=== PATIENT | male | born 1950 | race Caucasian/White ===

== ENCOUNTER 2017-05-22 23:16 | Observation (INO) | payer BC, OTHER ==
--- NOTE | 2017-05-22 23:54 | CPEKG ---
Heart Rate: 56 RR Interval: 1071 P-R Interval: 172 QRSD Interval: 102 QT Interval: 460 QTC Interval: 444 P [place]: 47 QRS [place]: 43 T Wave [place]: 27 EKG Severity - NORMAL ECG - EKG Impression: SINUS RHYTHM Electronically Signed By: Dylan Knapp 23-May-2017 06:37:48
[2017-05-22] MEDS ORDERED: NS 500 ML IV ONE (23:57)
--- NOTE | 2017-05-22 23:57 | EDPHY ---
H & P Stated Complaint: c/o chest tightness/sob x 5 days, subsided x 3 days, today sx returned HPI/ROS: HPI CHIEF COMPLAINT: Chest pain/sob HISTORY OF PRESENT ILLNESS: Patient very pleasant 66-year-old male, significant past medical history for atrial fib status post ablation, he presents emergency room with 5 days of chest discomfort left-sided describes a dull ache it does not radiate. Additionally has associated shortness of breath. Feels like he can't take a deep breath in. No pleuritic pain. Denies fever vomiting. Denies nausea or diaphoresis. Denies focal weakness numbness or tingling. Decided come the emergency room as the discomfort got a little bit worse tonight. It is left-sided of his chest. It does not radiate. He has a scheduled appointment at [facility] next week. He has not had a stress test a long time. His AFib status post cardiac ablation was in 2004. No history of PE. He does complain of 2/10 left-sided chest discomfort at this time. Past Medical History: AFib status post cardiac ablation Past Surgical History: Cardiac ablation Social History: Denies daily use of drugs alcohol tobacco products. Family History: Father had a stroke at age 60, grandfather of [place] ROS REVIEW OF SYSTEMS: A comprehensive 10 point review of systems is otherwise negative aside from elements mentioned in the history of present illness. Exam Constitutional appears well nontoxic triage nursing summary reviewed, vital signs reviewed, awake/alert. Eyes normal conjunctivae and sclera, EOMI, PERRLA. HENT normal inspection, atraumatic, moist mucus membranes, no epistaxis, neck supple/ no meningismus, no raccoon eyes. Respiratory clear to auscultation bilaterally, normal breath sounds, no respiratory distress, no wheezing. Cardiovascular rate normal, regular rhythm, no murmur, no edema, distal pulses normal. Gastrointestinal soft, non-tender, no rebound, no guarding, normal bowel sounds, no distension, no pulsatile mass. Genitourinary no CVA tenderness. Musculoskeletal no midline vertebral tenderness, full range of motion, no calf swelling, no tenderness of extremities, no meningismus, good pulses, neurovascularly intact. Skin pink, warm, & dry, no rash, skin atraumatic. Neurologic awake, alert and oriented x 3, AAOx3, moves all 4 extremities equally, motor intact, sensory intact, CN II-XII intact, normal cerebellar, normal vision, normal speech. Psychiatric normal mood/affect. Heme/Lymph/Immune no lymphadenopathy. Differential diagnosis includes but is not limited to: ACS, atypical chest pain , pneumothorax, pneumonia, pulmonary embolism, aortic dissection, congestive heart failure, tumor, musculoskeletal pain, esophageal pain, GERD, peptic ulcer disease, pancreatitis Medical Decision Making: Plan for this patient IV establishment, obtain EKG, cardiac marker, chest x-ray, rule out acute coronary syndrome, check D-dimer, check basic blood work. Full-dose aspirin will be given as well as a nitroglycerin dose. Re-evaluation: EKG interpretation by me on record in [employer] system. Impression time of EKG 2253, this is sinus rhythm rate of 56 I do not appreciate acute ST elevation or significant ST depression. This patient has a positive D-dimer. In the setting of chest discomfort and shortness of breath will proceed with CT angiogram to rule out pulmonary embolism. 0148: D-dimer was positive. The CT angiogram called to me by Dr. Hooper is negative for acute pulmonary embolism. 0148: I did re-evaluate the patient this time he is chest pain-free after nitroglycerin. He has receive full-dose aspirin. EKG is nonischemic. Troponin negative. Positive D-dimer. His cardiac risk factors include his age, family history, and somewhat atypical chest pain story. Plan will be for admission for cardiac evaluation and rule out. No evidence of acute coronary syndrome here in the emergency room. 0155AM: Updated patient. Agrees for admission. Reason for admission chest pain further evaluation of this. Stress test. Spoke with the hospitalist Dr. Waldrop Agrees to admit. Source: Patient - Medical/Surgical History Hx Asthma: No Hx Chronic Respiratory Disease: No Hx Diabetes: No Hx Cardiac Disease: Yes Hx Renal Disease: No Hx Cirrhosis: No Hx Alcoholism: No Hx HIV/AIDS: No Hx Splenectomy or Spleen Trauma: No Other PMH: medical Atrial flutter. surgery cath, ablation - Social History Smoking Status: Never smoked Constitutional: Initial Vital Signs Temperature (C) 36.9 C 05/22/17 23:28 Heart Rate 59 L 05/22/17 23:28 Respiratory Rate 18 05/22/17 23:28 Blood Pressure 158/77 H 05/22/17 23:28 O2 Sat (%) 97 05/22/17 23:28 O2 Delivery Mode Room Air Allergies/Adverse Reactions: No Known Allergies Allergy (Verified 05/22/17 23:32) Home Medications: Medication Instructions Recorded Aspirin [Aspirin 81mg (OTC)] 81 mg PO DAILY 03/05/12 Metoprolol Succinate Xr [Toprol Xl 25 mg PO DAILY 03/05/12 25 mg (RX)] Medical Decision Making - Data Points Laboratory Results: Laboratory Results 05/22/17 23:45 05/22/17 23:45 05/22/17 05/22/17 05/22/17 23:45 23:45 23:45 WBC 8.34 10^3/uL 10^3/uL (3.80-9.50) RBC 4.77 10^6/uL 10^6/uL (4.40-6.38) Hgb 16.1 g/dL g/dL (13.7-17.5) Hct 44.5 % % (40.0-51.0) MCV 93.3 fL fL (81.5-99.8) MCH 33.8 pg pg (27.9-34.1) MCHC 36.2 g/dL g/dL (32.4-36.7) RDW 12.1 % % (11.5-15.2) Plt Count 175 10^3/uL 10^3/uL (150-400) MPV 11.5 fL fL (8.7-11.7) Neut % (Auto) 62.8 % % (39.3-74.2) Lymph % (Auto) 23.3 % % (15.0-45.0) [place] % (Auto) 9.5 % % (4.5-13.0) Eos % (Auto) 3.6 % % (0.6-7.6) Baso % (Auto) 0.4 % % (0.3-1.7) Nucleat RBC Rel Count 0.0 % % (0.0-0.2) Absolute Neuts (auto) 5.25 10^3/uL 10^3/uL (1.70-6.50) Absolute Lymphs (auto) 1.94 10^3/uL 10^3/uL (1.00-3.00) Absolute Monos (auto) 0.79 10^3/uL 10^3/uL (0.30-0.80) Absolute Eos (auto) 0.30 10^3/uL 10^3/uL (0.03-0.40) Absolute Basos (auto) 0.03 10^3/uL 10^3/uL (0.02-0.10) Absolute Nucleated RBC 0.00 10^3/uL 10^3/uL (0-0.01) Immature Gran % 0.4 % % (0.0-1.1) Immature Gran # 0.03 10^3/uL 10^3/uL (0.00-0.10) PT 12.5 SEC SEC (12.0-15.0) INR 0.91 (0.83-1.16) APTT 27.2 SEC SEC (23.0-38.0) D-Dimer 0.52 ug/mLFEU H ug/mLFEU (0.00-0.50) Sodium 143 mEq/L mEq/L (134-144) Potassium 3.7 mEq/L mEq/L (3.5-5.2) Chloride 104 mEq/L mEq/L (97-110) Carbon Dioxide 26 mEq/l mEq/l (22-31) Anion Gap 13 mEq/L mEq/L (8-16) BUN 19 mg/dL mg/dL (7-23) Creatinine 1.2 mg/dL mg/dL (0.7-1.3) Estimated GFR > 60 Glucose 84 mg/dL mg/dL (70-100) Calcium 10.0 mg/dL mg/dL (8.5-10.4) Magnesium 2.0 mg/dL mg/dL (1.6-2.3) Total Bilirubin 1.3 mg/dL mg/dL (0.1-1.4) Conjugated Bilirubin 0.3 mg/dL mg/dL (0.0-0.5) Unconjugated Bilirubin 1.0 mg/dL mg/dL (0.0-1.1) AST 35 IU/L IU/L (17-59) ALT 46 IU/L IU/L (21-72) Alkaline Phosphatase 119 IU/L IU/L (38-126) Creatine Kinase 127 IU/L IU/L (0-224) CK-MB (CK-2) Fraction 1.42 ng/mL ng/mL (0.00-3.19) Troponin I < 0.012 ng/mL ng/mL (0.000-0.034) NT-Pro-B Natriuret Pep 39 pg/mL pg/mL (0-125) Total Protein 7.7 g/dL g/dL (6.3-8.2) Albumin 4.4 g/dL g/dL (3.5-5.0) Lipase 199 IU/L IU/L (23-300) Medications Given: Discontinued Medications Aspirin Buffered (Aspirin Ec) 325 mg PO EDNOW ONE Stop: 05/23/17 00:33 Last Admin: 05/23/17 00:44 Dose: 325 mg Sodium Chloride (Ns) 500 mls @ 0 mls/hr IV EDNOW ONE; Wide Open PRN Reason: Protocol Stop: 05/22/17 23:58 Last Admin: 05/23/17 00:45 Dose: 500 mls Sodium Chloride (Ns) 1,000 mls @ 0 mls/hr IV ONCE ONE PRN Reason: Wide Open Stop: 05/23/17 01:02 Last Admin: 05/23/17 01:52 Dose: 1,000 mls Nitroglycerin (Nitrostat) 0.4 mg SL EDNOW ONE Stop: 05/23/17 00:33 Last Admin: 05/23/17 00:45 Dose: 0.4 mg Departure - Departure Disposition: [facility] Inpatient Acute Clinical Impression: Chest pain Qualifiers: Chest pain type: unspecified Qualified Code(s): R07.9 - Chest pain, unspecified Condition: Fair Referrals: NONE *PRIMARY CARE P,. [Primary Care Provider] - As per Instructions
[2017-05-23 00:08] LABS: % IMMATURE GRANULYOCYTES 0.4 % (0.0-1.1); ABSOLUTE IMMATURE GRANULOCYTES 0.03 10^3/uL (0.00-0.10); ADD DIFF? NO; ADD MORPH? NO; ADD SCAN? NO; ATYPICAL LYMPHOCYTE FLAG 0 (0-99); FRAGMENT RBC FLAG 0 (0-99); HEMATOCRIT 44.5 % (40.0-51.0); HEMOGLOBIN 16.1 g/dL (13.7-17.5); LEFT SHIFT FLG 0 (0-99); LIPEMIA HEMOLYSIS FLAG 90 (0-99); MEAN CELL HEMOGLOBIN 33.8 pg (27.9-34.1); MEAN CELL HEMOGLOBIN CONCENTR. 36.2 g/dL (32.4-36.7); MEAN CELL VOLUME 93.3 fL (81.5-99.8); MEAN PLATELET VOLUME 11.5 fL (8.7-11.7); PLATELET CLUMPS FLAG 10 (0-99); PLATELET COUNT 175 10^3/uL (150-400); RED BLOOD CELL COUNT 4.77 10^6/uL (4.40-6.38); RED CELL DISTRIBUTION WIDTH 12.1 % (11.5-15.2)
[2017-05-23 00:22] LABS: ALANINE AMINOTRANSFERASE 46 IU/L (21-72); ALBUMIN 4.4 g/dL (3.5-5.0); ALKALINE PHOSPHATASE 119 IU/L (38-126); ANION GAP 13 mEq/L (8-16); ASPARTATE AMINOTRANSFERASE 35 IU/L (17-59); BILIRUBIN,TOTAL 1.3 mg/dL (0.1-1.4); BILIRUBIN-CONJUGATED 0.3 mg/dL (0.0-0.5); CARBON DIOXIDE 26 mEq/l (22-31); CHLORIDE 104 mEq/L (97-110); CREATININE 1.2 mg/dL (0.7-1.3); GLOMERULAR FILTRATION RATE > 60; GLUCOSE 84 mg/dL (70-100); POTASSIUM 3.7 mEq/L (3.5-5.2); SODIUM 143 mEq/L (134-144); TOTAL PROTEIN 7.7 g/dL (6.3-8.2)
[2017-05-23 00:24] LABS: INR 0.91 (0.83-1.16); PROTIME(PATIENT) 12.5 SEC (12.0-15.0)
[2017-05-23 00:25] LABS: APTT 27.2 SEC (23.0-38.0)
[2017-05-23] MEDS ORDERED: ASPIRIN EC 325 MG TAB PO ONE ×2 (00:32→11:34)
[2017-05-23] MEDS ORDERED: NITROGLYCERIN 0.4 MG BTL SL ONE (00:32)
[2017-05-23 00:37] LABS: CREATINE KINASE-MB FRACTION 1.42 ng/mL (0.00-3.19); TROPONIN I < 0.012 ng/mL (0.000-0.034)
[2017-05-23] MEDS ORDERED: NS 1,000 ML IV ONE (01:01)
[2017-05-23] MEDS ORDERED: IOPAMIDOL (ISOVUE 370) 100 ML BTL IV ONE (01:06)
[2017-05-23] MEDS ORDERED: ONDANSETRON 4 MG/2 ML VIAL IVP PRN (01:55)
[2017-05-23] MEDS ORDERED: ACETAMINOPHEN 325 MG TAB PO PRN (01:55)
[2017-05-23] MEDS ORDERED: ONDANSETRON DISINTEGRATING 4 MG TAB PO PRN (01:55)
--- NOTE | 2017-05-23 02:15 | PDGENHP ---
History and Physical - Chief Complaint Chest pain - History of Present Illness 66 yo M w/ hx of AF s/p ablation presents with chest pain. He first noticed chest pain 5 days ago. He describes it as a dull ache in his left chest that does not vary with exertion or rest. He had mild sensation of dyspnea but no other associated symptoms or radiation. The pain went away a few days ago but then returned while at rest so he decided to come to the ED. In the ED ECG showed no signs of ischemia and troponin was negative. He was admitted for risk stratification. History Information - Allergies/Home Medication List Allergies/Adverse Reactions: No Known Allergies Allergy (Verified 05/22/17 23:32) Home Medications: Aspirin [Aspirin 81mg (OTC)] 81 mg PO DAILY 03/05/12 [Last Taken Unknown] Metoprolol Succinate Xr [Toprol Xl 25 mg (RX)] 25 mg PO DAILY 03/05/12 [Last Taken Unknown] I have personally reviewed and updated: family history, medical history - Past Medical History atrial fibrillation - Surgical History Reports: ablation - Family History Positive for: CAD (Grandfather of [place] at age 61), stroke - Social History Smoking Status: Never smoked Review of Systems Review of Systems: ROS: 10pt was reviewed & negative except for what was stated in HPI & below Physical Exam Physical Exam: Temp Pulse Resp BP Pulse Ox 36.7 C 57 L 18 117/77 96 05/23/17 01:53 05/23/17 01:53 05/23/17 01:53 05/23/17 01:53 05/23/17 01:53 Constitutional: no apparent distress, not in pain Eyes: PERRL, EOMI Ears, Nose, Mouth, Throat: moist mucous membranes, no oral mucosal ulcers Cardiovascular: regular rate and rhythym, systolic murmur Respiratory: no respiratory distress, no rales or rhonchi Gastrointestinal: normoactive bowel sounds, soft, non-tender abdomen Skin: warm, normal color Musculoskeletal: full muscle strength, no muscle tenderness Neurologic: AAOx3, CN II-XII Intact Lab Data & Imaging Review 05/22/17 23:45 05/22/17 23:45 WBC 8.34 10^3/uL (3.80-9.50) 05/22/17 23:45 RBC 4.77 10^6/uL (4.40-6.38) 05/22/17 23:45 Hgb 16.1 g/dL (13.7-17.5) 05/22/17 23:45 Hct 44.5 % (40.0-51.0) 05/22/17 23:45 MCV 93.3 fL (81.5-99.8) 05/22/17 23:45 MCH 33.8 pg (27.9-34.1) 05/22/17 23:45 MCHC 36.2 g/dL (32.4-36.7) 05/22/17 23:45 RDW 12.1 % (11.5-15.2) 05/22/17 23:45 Plt Count 175 10^3/uL (150-400) 05/22/17 23:45 MPV 11.5 fL (8.7-11.7) 05/22/17 23:45 Neut % (Auto) 62.8 % (39.3-74.2) 05/22/17 23:45 Lymph % (Auto) 23.3 % (15.0-45.0) 05/22/17 23:45 [place] % (Auto) 9.5 % (4.5-13.0) 05/22/17 23:45 Eos % (Auto) 3.6 % (0.6-7.6) 05/22/17 23:45 Baso % (Auto) 0.4 % (0.3-1.7) 05/22/17 23:45 Nucleat RBC Rel Count 0.0 % (0.0-0.2) 05/22/17 23:45 Absolute Neuts (auto) 5.25 10^3/uL (1.70-6.50) 05/22/17 23:45 Absolute Lymphs (auto) 1.94 10^3/uL (1.00-3.00) 05/22/17 23:45 Absolute Monos (auto) 0.79 10^3/uL (0.30-0.80) 05/22/17 23:45 Absolute Eos (auto) 0.30 10^3/uL (0.03-0.40) 05/22/17 23:45 Absolute Basos (auto) 0.03 10^3/uL (0.02-0.10) 05/22/17 23:45 Absolute Nucleated RBC 0.00 10^3/uL (0-0.01) 05/22/17 23:45 Immature Gran % 0.4 % (0.0-1.1) 05/22/17 23:45 Immature Gran # 0.03 10^3/uL (0.00-0.10) 05/22/17 23:45 PT 12.5 SEC (12.0-15.0) 05/22/17 23:45 INR 0.91 (0.83-1.16) 05/22/17 23:45 APTT 27.2 SEC (23.0-38.0) 05/22/17 23:45 D-Dimer 0.52 ug/mLFEU (0.00-0.50) H 05/22/17 23:45 Sodium 143 mEq/L (134-144) 05/22/17 23:45 Potassium 3.7 mEq/L (3.5-5.2) 05/22/17 23:45 Chloride 104 mEq/L (97-110) 05/22/17 23:45 Carbon Dioxide 26 mEq/l (22-31) 05/22/17 23:45 Anion Gap 13 mEq/L (8-16) 05/22/17 23:45 BUN 19 mg/dL (7-23) 05/22/17 23:45 Creatinine 1.2 mg/dL (0.7-1.3) 05/22/17 23:45 Estimated GFR > 60 05/22/17 23:45 Glucose 84 mg/dL (70-100) 05/22/17 23:45 Calcium 10.0 mg/dL (8.5-10.4) 05/22/17 23:45 Magnesium 2.0 mg/dL (1.6-2.3) 05/22/17 23:45 Total Bilirubin 1.3 mg/dL (0.1-1.4) 05/22/17 23:45 Conjugated Bilirubin 0.3 mg/dL (0.0-0.5) 05/22/17 23:45 Unconjugated Bilirubin 1.0 mg/dL (0.0-1.1) 05/22/17 23:45 AST 35 IU/L (17-59) 05/22/17 23:45 ALT 46 IU/L (21-72) 05/22/17 23:45 Alkaline Phosphatase 119 IU/L (38-126) 05/22/17 23:45 Creatine Kinase 127 IU/L (0-224) 05/22/17 23:45 CK-MB (CK-2) Fraction 1.42 ng/mL (0.00-3.19) 05/22/17 23:45 Troponin I < 0.012 ng/mL (0.000-0.034) 05/22/17 23:45 NT-Pro-B Natriuret Pep 39 pg/mL (0-125) 05/22/17 23:45 Total Protein 7.7 g/dL (6.3-8.2) 05/22/17 23:45 Albumin 4.4 g/dL (3.5-5.0) 05/22/17 23:45 Lipase 199 IU/L (23-300) 05/22/17 23:45 Visualized and Interpreted Chest x-ray results: Yes Chest X-Ray results: no infiltrate Visualized and Interpreted EKG results: Yes EKG Interpretation: Positive for: normal sinsus rhythm, NS ST wave abnormalities Assessment & Plan Assessment: 66 yo M w/ hx of AF s/p ablation presents with chest pain. Plan: 1. Chest pain - Constant, dull ache present over the last 5 days. Not typical for angina noting no relation to exertion or rest. However, noting age and family hx, reasonable to admit for observation and risk stratification. Initial ECG without signs of ischemia and troponin negative despite symptoms for 5 days. - Monitor on telemetry, trend cardiac enzymes - Will order graded exercise stress test for the morning - Hold BB (last dose >24 hours ago so should be ok for stress) 2. Hx AF - S/p ablation, on BB and ASA as outpatient. In NSR on admission. Diet - NPO pending stress test Code - Full Ppx - SCDs Dispo - Admit to PCU for observation
[2017-05-23 08:15] LABS: % IMMATURE GRANULYOCYTES 0.2 % (0.0-1.1); ABSOLUTE IMMATURE GRANULOCYTES 0.01 10^3/uL (0.00-0.10); ADD DIFF? NO; ADD MORPH? NO; ADD SCAN? NO; ATYPICAL LYMPHOCYTE FLAG 0 (0-99); FRAGMENT RBC FLAG 0 (0-99); HEMATOCRIT 40.6 % (40.0-51.0); HEMOGLOBIN 14.4 g/dL (13.7-17.5); LEFT SHIFT FLG 0 (0-99); LIPEMIA HEMOLYSIS FLAG 90 (0-99); MEAN CELL HEMOGLOBIN CONCENTR. 35.5 g/dL (32.4-36.7); MEAN CELL VOLUME 92.9 fL (81.5-99.8); MEAN PLATELET VOLUME 11.5 fL (8.7-11.7); PLATELET CLUMPS FLAG 0 (0-99); PLATELET COUNT 144 10^3/uL (150-400); RED BLOOD CELL COUNT 4.37 10^6/uL (4.40-6.38); RED CELL DISTRIBUTION WIDTH 12.2 % (11.5-15.2)
[2017-05-23 08:26] LABS: ANION GAP 11 mEq/L (8-16); CALCIUM 9.1 mg/dL (8.5-10.4); CARBON DIOXIDE 23 mEq/l (22-31); CHLORIDE 111 mEq/L (97-110); CREATININE 1.1 mg/dL (0.7-1.3); GLOMERULAR FILTRATION RATE > 60; GLUCOSE 84 mg/dL (70-100); POTASSIUM 4.2 mEq/L (3.5-5.2); SODIUM 145 mEq/L (134-144)
[2017-05-23 08:38] LABS: TROPONIN I < 0.012 ng/mL (0.000-0.034)
[2017-05-23] MEDS ORDERED: FLU VACC QS 2017-18 (3YR+)/PF 0.5 ML SYR (FLUARIX QUAD) IM ONE (08:52)
[2017-05-23] MEDS ORDERED: FAMOTIDINE 20 MG TAB PO ONE (11:34)
[2017-05-23] MEDS ORDERED: DIAZEPAM 5 MG TAB PO ONE (11:34)
[2017-05-23] MEDS ORDERED: diphenhydrAMINE 25 MG CAP PO ONE (11:34)
[2017-05-23] MEDS ORDERED: TEMAZEPAM 15 MG CAP PO PRN (11:34)
[2017-05-23] MEDS ORDERED: NS 1,000 ML IV SCH (11:45)
--- NOTE | 2017-05-23 12:30 | ASMTCMCOM ---
CM Note CM Note Notes: 05/23/2018 Case Management Note Reviewed chart. There are no case management d/c needs identified at this time d/t pt age, activity levels prior to admission, marital status and employment status. There are no PT or OT evals ordered at this time. Case Management d/c poc: Home independent with follow up as directed. Case Management available if needs change. Date Signed: 05/23/2017 12:30 PM Electronically Signed By:Dolly Mcdonough RN
[2017-05-23] MEDS ORDERED: LIDOCAINE 1% 300 MG/30 ML SDV ONE (12:47)
[2017-05-23] MEDS ORDERED: fentaNYL 100 MCG/2 ML INJ ONE (12:47)
[2017-05-23] MEDS ORDERED: MIDAZOLAM 2 MG/2 ML VIAL ONE ×2 (12:48)
[2017-05-23] MEDS ORDERED: VERAPAMIL 5 MG/2 ML VIAL ONE (12:48)
[2017-05-23] MEDS ORDERED: HEPARIN 10,000 UNIT/10 ML MDV ONE (12:48)
[2017-05-23] MEDS ORDERED: IOPAMIDOL (ISOVUE-370) 150 ML BTL IV ONE (12:48)
[2017-05-23 13:03] LABS: CHOLESTEROL 166 mg/dL (140-220); CHOLESTEROL/HDL RATIO 4.61 RATIO (1.00-4.97); HIGH DENSITY LIPOPROTEIN 36 mg/dL (40-65); LDL/HDL RATIO 3.17 RATIO (1.00-3.64); LOW DENSITY LIPOPROTEIN 114 mg/dL (80-100); NON-HIGH DENSITY LIPOPROTEIN 130 mg/dL (90-129); TRIGLYCERIDE 82 mg/dL (40-150); VERY LOW DENSITY LIPOPROTEINS 16 mg/dL (8-25)
--- NOTE | 2017-05-23 13:05 | GCON ---
[f rep st] CONSULTATION CARDIOLOGY CONSULTATION INDICATION FOR CARDIOLOGY CONSULTATION: Chest pressure, abnormal stress testing. HISTORY OF PRESENT ILLNESS: The patient is a 66-year-old male with significant past medical history that includes history of atrial flutter, status post ablation by Dr. Najera in 2005. He reports starting early last week, approximately 5-6 days ago, he developed a midsternal chest pressure, reports the pressure was more constant, lasting 2-3 hours, was associated with some mild shortness of breath but no nausea, diaphoresis. He initially did not think much of this, but it did concern him, he did call [facility], and made an appointment to be seen early next week for further evaluation, but with his symptoms worsening, he felt it was best to come to the emergency department for further evaluation. He reports no history of any recent fevers, chills, or night sweats. Reporting no palpitations, orthopnea, PND, edema, lightheadedness , near-syncope, or syncopal events. Upon arrival to the emergency department, initial electrocardiogram was done, showing sinus rhythm, normal axis, with no significant ST or T-wave abnormalities. Laboratory studies were drawn, in which it was noted that he had a negative troponin, but mildly elevated D-dimer at 0.52. CTA of the chest was done soon afterwards, showing no evidence of pulmonary embolism. No other significant findings. He has remained in the hospital overnight, he reports chest pain has subsided. He did undergo exercise treadmill testing, done by myself earlier today, in which it was noted that he had significant ST depression in his anterior lateral leads, worse in V3 through V6. He had experienced no chest pain, and he was able to go 9 minutes and 30 seconds, but he has a Paul treadmill score of -1, placing him at intermediate risk. PAST MEDICAL HISTORY: Significant past medical history includes atrial flutter , status post [place] [address] Najera. Patient also reporting episodes of chest pressure in 2007 in which he underwent cardiac catheterization by Dr. Guo and was told coronaries were "clean as a whistle." PAST SURGICAL HISTORY: Ablation, as mentioned above. FAMILY HISTORY: Patient does report significant family history of vascular disease, reporting father had a stroke at age 59, and had heart issues from that time on, until . SOCIAL HISTORY: He works for the [employer]. He is , he has 2 children who are alive and well. He reports occasional alcohol use of 1 beer, denies any illicit drug use. ALLERGIES: No known drug allergies. MEDICATIONS: At home, include metoprolol succinate 12.5 mg p.o. q.h.s., aspirin 81 mg p.o. daily. Cialis 40-60 mg p.o. daily p.r.n. Eyedrops, 1 drop to each eye p.r.n. REVIEW OF SYSTEMS: A 10-point review of systems done on the patient, all negative except as mentioned above. PHYSICAL EXAMINATION: GENERAL APPEARANCE: Thin, well-groomed, male. He is alert and oriented to person, place, time, and situation. Appears to be under no acute distress. VITAL SIGNS: Currently, blood pressure 123/79, heart rate is 63, sinus rhythm on the monitor. Respirations 12, saturating 97% on room air. Temperature 36.8 degree Celsius. HEENT: Head is normocephalic. Lips and tongue are pink and moist with no signs of cyanosis. Conjunctivae pink. NECK: Trachea is midline, +2 carotid pulses bilateral. No auscultated bruits, no jugular vein distention. RESPIRATORY: Lungs clear to auscultation; no rhonchi, rales or wheezes. No accessory muscle use, no intercostal muscle retraction noted. CARDIAC: Regular rate, regular rhythm, S1, S2. No S3, S4, gallops, rubs, or murmurs noted. ABDOMEN: Soft, nontender, bowel sounds x4 quadrants. No organomegaly. No palpable masses. SKIN: [place], warm, dry, no cyanosis, no clubbing, no peripheral edema. VASCULAR: +2 carotids bilateral, + 2 radials bilateral, +1 dorsal pedal and posterior tibial pulses bilateral. LABORATORY STUDIES: Laboratory studies drawn today show WBC of 5.73, hemoglobin 14.4, hematocrit 40.6, platelet count 144. Sodium 145, potassium 4.2 , chloride 111, CO2 of 23, BUN 14, creatinine 1.1, glucose 84, calcium 9.1. The patient was noted on admission to have 2 troponin levels drawn since hospital admission last evening, both being less than 0.012, proBNP of 39, D- dimer of 0.52. STUDIES: Initial electrocardiogram as mentioned above, stress testing as mentioned above, chest CTA as mentioned above. Chest x-ray done on admission showing no acute cardiopulmonary process. ASSESSMENT AND PLAN: 1. Chest pressure: Patient reporting ongoing episodes of chest pressure, more constant, not associated with significant exertion. It has worsened over the last 5 days. Negative troponins, initial resting EKG showing no signs of ischemia or infarction. Positive exercise treadmill testing showing ST depression in anterior lateral leads, Paul treadmill score of -1, placing him at intermediate risk. At this time, due to stress testing and cardiac risk factors of age, sex, and questionable family history of coronary artery disease , is felt best that the patient be further evaluated by undergoing coronary angiogram. Risks and benefits of this procedure were explained to both patient and his , they verbalize understanding and agreed to procedure. We will plan for him to have this procedure performed later today by Dr. Zapata. He has been started on aspirin therapy, he has sublingual nitroglycerin to use. Further recommendations to come post catheterization. Will also have him repeat a fasting lipid panel to further evaluate his cardiac risks. 2. History of atrial flutter: History room remote ablation. None noted during this hospitalization. We will resume his home dose of metoprolol. He is on aspirin therapy. Thank you for this consultation. We will be glad to follow along with you. /[id number]/MODL MTDD
--- NOTE | 2017-05-23 13:16 | CPR ---
[f rep st] NONINVASIVE CARDIAC PROCEDURE REPORT PROCEDURE: Exercise treadmill testing SUPERVISING SENIOR PROCESS CONTROL TECH: Domo Zapata MD INDICATION FOR PROCEDURE: Chest pain with associated symptoms of mild shortness of breath. PRE: After obtaining informed consent, patient was placed on electrocardiogram. Initial EKG showing sinus rhythm, normal axis, with no significant ST or T-wave abnormalities. The patient denies any c hest pain, shortness of breath, or symptoms suggesting of ischemia at this time. Initial blood press ure 122/82, saturation 94%. STRESS: The patient was placed on exercise treadmill, following standard Jeff protocol with the [facility] findings: 1. Patient exercised for 9 minutes and 30 seconds. 2. 10.6 METS. 3. The patient attained a heart rate of 140 BPM which was 90% of MPHR. 4. The patient was noted to have [address] depression in anterior lateral leads, worsening in V4 th rough V6. 5. Patient reporting no chest pain or symptoms suggesting of ischemia during stress. 6. Patient had a BP response: Resting 120/82, peak 150/88. 7. Patient maintained SpO2 greater than 90% throughout testing. 8. The patient was noted to have occasional PVC, multifocal. 9. Test was stopped due to maximum effort. 10. Paul treadmill score of -1, placing at intermediate cardiovascular risk. RECOVERY: Patient recovered for 5 minutes, remained asymptomatic, EKG returned to baseline. IMPRESSION: A 66-year-old male, admitted to the hospital for chest pressure, with associated symptom s of shortness of breath. Underwent exercise treadmill testing, noted to have [address] depression in anterior lateral leads, equivocal for ischemia. Also noted during peak exercise, multifocal dianne ture ventricular contractions occasionally. Vital signs remained stable, patient recovered remaining symptomatic. Paul treadmill score of -1, placing him at intermediate risk. Results of study discussed with Dr. Zapata and Dr. Gorman of [facility]. /[id number]/MODL
[2017-05-23] MEDS ORDERED: HYDROCODONE/APAP 5/325 TAB PO PRN (14:38)
[2017-05-23] MEDS ORDERED: ATROPINE SULFATE 1 MG/10 ML SYR IVP PRN (14:38)
--- NOTE | 2017-05-23 14:45 | PDDXCAT ---
Diagnostic Cath Note - . Date: 05/23/17 Waiter/Waitress Take Out: Benny Indication: other (Chest pain; ST segment depression on ETT) - Procedure Access: right wrist - Materials Left Heart Cath size: 5F Left Heart Cath materials: other ([employer] and [employer]) - Findings-Left Heart Catheterization LM: Angiographically normal. LAD: Angiographically normal. LCX: Angiographically normal. RCA: Angiographically normal. LVEF: 55% Wall motion: Normal Complications: None Estimated blood loss: <50ml Closure method: TR Band Assessment: 1) Normal LV systolic function. 2) Angiographically normal coronary arteries. Plan: Etiology of symptoms still uncertain...negative troponins, normal cath (ETT is false positive), and no PE on CTA of chest. Will get echo to assess for diastolic function, valvular disease, and effusion. If echo is normal he could be discharged later today. Patient Problems: Problems Problem Status Onset Chest pain Acute
--- NOTE | 2017-05-23 16:02 | ECHO ---
[email or web address] [address] [address] Main: [phone] Fax: Transthoracic Echocardiogram Name: MIKA GARCIA MR#: [id number] Study Date: 05/23/2017 Study Time: 02:48 PM Date of : 1950 Age: 66 year(s) Height: 182.9 cm (72 in.) Weight: 93.44 kg (206 lb.) BSA: 2.16 m2 Gender: Male Examination: Echo Indication: chest pressure and dyspnea on exertion Image Quality: Adequate Contrast: Requested by: Domo Zapata BP: 143 mmHg/86 mmHg Heart Rate: Rhythm: Normal sinus rhythm Indication: chest pressure and dyspnea on exertion Procedure Staff Lap Hand Tool: Sara Leon Reading Physician: Domo Zapata Requesting Provider: Conclusions: Normal size left ventricle. EF is 68 %. No regional wall motion abnormality. Normal diastolic LV function. Normal appearing valvular structures. Mild mitral valve regurgitation is present. Trivial to mild aortic valve regurgitation. Trivial to mild tricuspid valve regurgitation. The pulmonary artery pressure is normal. No pericardial effusion. Measurements: Chambers Valvular Assessment AV/MV Valvular Assessment TV/PV Normal Normal Normal Name Value Range Name Value Range Name Value Range Ao Deborah (MM): 3.3 cm (2.2 cm-3.7 AV Vmax: 1.24 m/s (1 m/s-1.7 TR Vmax: 1.95 mm/s ( - ) cm) m/s) TR PGmax: 15 mmHg ( - ) IVSd (2D): 0.9 cm (0.6 cm-1.1 AV maxP mmHg ( - ) syst. PAP: 25 mmHg ( - ) cm) LVOT Vmax: 1.10 m/s (0.7 m/s-1.1 PV Vmax: 0.79 m/s (0.6 m/s-0.9 LVDd (2D): 4.6 cm (4.2 cm-5.9 m/s) m/s) cm) MV E Vmax: 0.53 m/s ( - ) PV PGmax: 2 mmHg ( - ) LVDs (2D): 3.0 cm (2.1 cm-4 MV A Vmax: 0.66 m/s ( - ) cm) MV E/A: 0.80 ( - ) LVPWd (2D): 0.8 cm (0.6 cm-1 cm) LVEF (BP): 68 % (>=55 %) RVDd(2D): 3.5 cm (1.9 cm-3.8 cmmm) Continued Measurements: Patient: MIKA GARCIA Study Date: 05/23/2017 Page 1 of 2 02:48 PM Chambers Valvular Assessment AV/MV Valvular Assessment TV/PV Name Value Name Value Name Value LADs Lon.8 cm MV DecTime: 384 m/s CVP (est.): 10 mmHg LA Area: 17.5 cm2 MV E/E' Septal: 7.90 LA Volume: 64 ml MV E/E' Lateral: 8.50 LA Volume Index: 29.6 ml/m2 TAPSE: 2.3 cm RA Area: 14.1 cm2 Additional Vessels Name Value Ao Ascendin.8 cm Findings: Left Ventricle: Normal size left ventricle. No LV hypertrophy. Normal global systolic LV function. EF is 68 %. No regional wall motion abnormality. Normal diastolic LV function. Right Ventricle: Normal size right ventricle. Normal RV function. Left Atrium: The left atrium is normal in size. Right Atrium: The right atrium is normal in size. Mitral Valve: The mitral valve is normal in appearance and function. Mild mitral valve regurgitation is present. Aortic Valve: The aortic valve is normal in appearance and function. Trivial to mild aortic valve regurgitation. No aortic valve stenosis is present. Tricuspid Valve: The tricuspid valve is normal in appearance and function. Trivial to mild tricuspid valve regurgitation. The pulmonary artery pressure is normal. Pulmonic Valve: The pulmonic valve is normal in appearance and function. There is no pulmonic regurgitation seen. Aorta: The aorta is normal. Normal size aortic root measuring 3.3 cm. Normal size ascending aorta measuring 2.8 cm. IVC: The IVC is mildly dilated. There is greater shaunna 50% respiratory excursion. Pericardium: No pericardial effusion. (No Signature Object) Patient: MIKA GARCIA Study Date: 05/23/2017 Page 2 of 2 02:48 PM [id number]
[2017-05-23 18:43] VITALS: PULSE 56; O2SAT 94
[2017-05-23 19:14] VITALS: BP 133/83; RESP 16; TEMP 98.3
[2017-05-23] MEDS ORDERED: METOPROLOL SUCCINATE XR 25 MG TAB PO SCH (21:00)
--- NOTE | 2017-05-24 04:58 | GDS ---
[f rep st] DISCHARGE SUMMARY DISCHARGE DIAGNOSES: Include: 1. Chest pain, noncardiac. 2. History of atrial fibrillation, status post ablation. HISTORY OF PRESENT ILLNESS: A 66-year-old male with a history of A-fib, status post ablation, who pr esents with complaints for chest pain. For details of the patient's initial presentation, please see the history and physical dated 05/22/2017. CONSULTATIVE SERVICES: Include: Cardiology. PROCEDURES: 1. On 05/23/2017, patient underwent cardiac catheterization which showed angiographically normal cor onary arteries. 2. Transthoracic echocardiogram shows normal LV size and function. HOSPITAL COURSE: By issue: 1. Chest pain. Patient was ruled out on the PCU with serial troponins and EKGs. Patient was sent f or graded treadmill stress testing which was positive for inducible ischemia. Patient was seen by [facility] rdiology, and taken for cardiac catheterization. Angiographic images showed normal coronary arteries . Transthoracic echocardiogram confirmed normal LV size and function. Patient will be discharged [facility] outpatient cardiology followup, and continued on his normal home medications which include 81 mg o f aspirin daily, as well as metoprolol extended release. 2. Atrial fibrillation. Patient is status post ablation, [facility] and, again, will be discharged on his aspirin and metoprolol. MEDICATIONS: At the time of disposition, please reference the med rec printed on 05/23/2017. PENDING STUDIES: At the time of this dictation, are none. FOLLOWUP: Appointments include: With [facility] outpatient for management of his atrial fibrilla tion half-way. I spent greater than 30 minutes in the planning and coordination of this discharge. /[id number]/MODL
== END 2017-05-23 20:15 | disposition home or self-care (01) ==
LOC: F2W 05-23 02:28 → UNDODISOB 05-23 17:47
PROVIDERS: ADMIT Student in an Organized Health Care Education/Training Program; ATTEND Student in an Organized Health Care Education/Training Program
PROC: B2151ZZ Fluoroscopy of Left Heart using Low Osmolar Contrast (ICD-10-PCS; principal; 2017-05-23)
PROC: 4A023N7 Measurement of Cardiac Sampling and Pressure, Left Heart, Percutaneous Approach (ICD-10-PCS; principal; 2017-05-23)
PROC: B246ZZ4 Ultrasonography of Right and Left Heart, Transesophageal (ICD-10-PCS; principal; 2017-05-23)
PROC: B2111ZZ Fluoroscopy of Multiple Coronary Arteries using Low Osmolar Contrast (ICD-10-PCS; principal; 2017-05-23)
DX: R07.89 Other chest pain (principal); Z23 Encounter for immunization
CPT/HCPCS: 71010; 71275; 90471; 93005; 93017; 93306; 93458; C1769; G0378; G0008; J1644; J2250; J3010; Q9967